=== PATIENT | female | born 1970 | race Caucasian/White ===

== ENCOUNTER 2019-09-09 18:33 | Emergency (ER) | payer SELFPAY ==
[~2019-09-09] VITALS: Ht 157.5 cm; Wt 61.7 kg
--- NOTE | 2019-09-09 18:40 | NUR ---
PT AMBULATED TO BED 7, STEADY GAIT.
[2019-09-09 18:42] VITALS: BP 147/99
--- NOTE | 2019-09-09 18:56 | NUR ---
OBTAINED BLOOD WORK, YAO REDDY AWARE
--- NOTE | 2019-09-09 18:56 | NUR ---
48 YO F C/C OF STRONG 8/10 CHEST PAIN IN THE MIDDLE OF HER CHEST THAT STARTED ON SATURDAY. THE PAIN RADIATES FROM [place] TO HER LEFT SHOULDER AND DOWN HER LEFT ARM. PT STATES IT DOES NOT HURT TO BREATHE BUT THE PAIN IS VERY STRONG, PATIENT PRESENTED IN RODAS SIGN. S1 S2 HEARD ON AUSCULATION. LUNG SOUNDS CLEAR. PT PLACED ON SUPERVISOR MULTIFOCAL LENS AND 2L NC. VSS. NKA RX: ASPIRIN 81MG MED HX: [facility] 2013, ONE OVARY REMOVED IN 2000
--- NOTE | 2019-09-09 18:56 | NUR ---
PT STATES THAT HER LIPS ARE BLUE. SIDE RAILS X1.
--- NOTE | 2019-09-09 19:20 | NUR ---
RECEIVED REPORT FROM BARRY MARTINEZ. WILL CONT CARE AT THIS TIME.
--- NOTE | 2019-09-09 19:20 | NUR ---
REPORT GIVEN TO YAO FOR CONTINUITY OF CARE
[2019-09-09] MEDS ORDERED: NITROGLYCERIN 0.4 MG TAB SL ONE ×2 (19:35→19:55)
[2019-09-09] MEDS ORDERED: ASPIRIN 325 MG TAB PO ONE (19:35)
--- NOTE | 2019-09-09 19:51 | NUR ---
NADR, REDUCED PAIN 5/10.
--- NOTE | 2019-09-09 19:55 | NUR ---
XR AT BEDSIDE.
--- NOTE | 2019-09-09 19:55 | NUR ---
PER VERBAL ORDER OF DR. ROMERO ADMINISTERED NITRO SL 0.4MG. VSS BP- 117/78 P-66 R-17 O2-100 ON RA
[2019-09-09 19:57] LABS: BASOPHILS % (AUTO) 0.6 % (0.0-2.0); EOSINOPHILS # (AUTO) 0.1 K/uL (0-0.4); EOSINOPHILS % (AUTO) 1.5 % (0.0-4.0); HEMATOCRIT 39.1 % (36-48); HEMOGLOBIN 13.4 g/dL (12.0-16.0); LYMPHOCYTES # (AUTO) 2.1 K/uL (2.5-16.5); LYMPHOCYTES % (AUTO) 27.6 % (20.5-51.1); MEAN CORPUSCULAR HEMOGLOBIN 31 pg (27-31); MEAN CORPUSCULAR HGB CONC 34 g/dL (33-37); MEAN CORPUSCULAR VOLUME 89.4 fL (80-94); MONOCYTES # (AUTO) 0.4 K/uL (0.8-1.0); NEUTROPHILS % (AUTO) 65.3 % (42.2-75.2); PLATELET COUNT (AUTO) 243 K/uL (140-450); RED BLOOD CELL COUNT(AUTO) 4.38 MIL/uL (4.20-5.40); RED CELL DISTRIBUTION WIDTH 12.7 % (11.6-13.7); WHITE BLOOD COUNT (AUTO) 7.7 K/uL (4.8-10.8)
--- NOTE | 2019-09-09 19:57 | NUR ---
X-Ray at bedside.
[2019-09-09 20:10] LABS: PROTHROMBIN TIME 9.5 secs (10.8-13.4)
[2019-09-09 20:12] LABS: ANION GAP 14.5 (8-16); CREATININE 0.9 mg/dL (0.6-1.3); POTASSIUM 3.5 mmol/L (3.5-5.1); TOTAL BILIRUBIN 0.3 mg/dL (0.0-1.0)
--- NOTE | 2019-09-09 20:16 | NUR ---
NADR. 4/10 PAIN AFTER 2ND NITRO VS BP-114/75 P-62 R-15 02-100 ON RA
--- NOTE | 2019-09-09 23:57 | NUR ---
Dr. Herrera examining patient.
[2019-09-10 00:14] VITALS: BP 117/81
--- NOTE | 2019-09-10 00:14 | NUR ---
Patient discharged with v/s stable. Written and verbal after care instructions given and explained. Patient verbalized understanding. Ambulatory with steady gait. All questions addressed prior to discharge. Advised to follow up with PMD.
== END 2019-09-10 00:14 | disposition home or self-care (01) ==
LOC: MED 18:33
DX: R07.89 Other chest pain (principal); R06.02 Shortness of breath
CPT/HCPCS: 36415; 71045; 80053; 83880; 84484; 85025; 85610; 85730; 93005; 99285